=== PATIENT | female | born 1940 | race Caucasian/White ===

== ENCOUNTER → 2018-09-01 | Outpatient (CLI) | payer OTHER, MEDICAID ==
[~2018-09-01] MED LIST: BARIUM SULFATE 340 GM SUSPENSION. PO ONE; BARIUM SULFATE 60% 355 ML SUSP PO ONE
--- NOTE | 2018-09-01 12:40 | RAD ---
Small bowel series, 09/01/2018: History: Abnormal CT, possible mass, abdominal pain The preliminary abdominal image demonstrates a nonspecific gas pattern. Fixation rods and screws are present in the spine at the lumbosacral level. There is no evidence of organomegaly. Serial abdominal radiographs were obtained following oral ingestion of liquid barium. 1.2 minutes of fluoroscopy was also performed, with 4 fluoroscopic spot images recorded. There has been previous gastric surgery with a gastrojejunostomy. There is reflux of contrast into the afferent loop. The small bowel loops are of normal caliber. There is normal transit of the barium through the small bowel into the terminal ileum. No mass is identified. The terminal ileum is partially obscured by other overlying loops of distal ileum, but shows no abnormality. IMPRESSION: 1. Previous gastric surgery with gastrojejunostomy. 2. No significant small bowel abnormality is detected.
== END | disposition home or self-care (01) ==
LOC: RAD 09:04
PROVIDERS: ATTEND Internal Medicine Gastroenterology
DX: R93.89 Abnormal findings on diagnostic imaging of other specified body structures (principal)
CPT/HCPCS: 74250